=== PATIENT | female | born 1960 ===

== ENCOUNTER 2017-05-23 17:14 | Emergency (ER) | payer SELFPAY ==
[2017-05-23] MEDS ORDERED: KETOROLAC TROMETHAMINE 60 MG/2 ML VIAL ONE (17:18)
[2017-05-23] MEDS ORDERED: KETOROLAC TROMETHAMINE 60 MG/2 ML VIAL IM ONE (17:19)
[2017-05-23] MEDS ORDERED: ORPHENADRINE CITRATE 60 MG/2ML ONE (17:19)
[2017-05-23] MEDS ORDERED: ORPHENADRINE CITRATE 60 MG/2ML IM ONE (17:19)
--- NOTE | 2017-05-23 17:24 | ED Physician Documentation ---
Low Back Pain - HISTORIAN Historian: patient, child - HPI Stated Complaint: low back pain after fall down stairs Chief Complaint: Low Back Pain/ Injury History: back pain (she has had back surgery in the past ) Onset: minutes (30) Duration: continues in ED Recent Injury: Yes (fell down stairs ) Context: fall Where: other (daughters home) Other Injuries: denies: neck, head, back Severity: moderate Quality: other (sharp and cramping like twisted up per her report ) Associated Symptoms: denies: incontinence, nausea, vomiting, problems urinating , difficulty walking, light-headedness, dizziness, numbness, weakness Worsened By:: supine, upright position, movement to RT flexion Relieved By: nothing Further Comments: no - ROS CONST: no problems CVS/RESP: none EYES/ENT: none MS/SKIN/LYMPH: none Neuro/Psych: none - PAST HX Past History: other (back pain and surgery in past ) Surgeries/Procedures: other (back surgery x 2 4 years ago , hysterectomy, c section ) Allergies/Adverse Reactions: Allergies Allergy/AdvReac Type Severity Reaction Status Date / Time levofloxacin [From Levaquin] Allergy Verified 05/23/17 17:26 metoclopramide HCl Allergy Verified 05/23/17 17:26 [From Reglan] prochlorperazine Allergy Verified 05/23/17 17:26 [From Compazine] prochlorperazine edisylate Allergy Verified 05/23/17 17:26 [From Compazine] prochlorperazine maleate Allergy Verified 05/23/17 17:26 [From Compazine] Home Medications: Ambulatory Orders Medication Instructions Recorded Amoxicillin [Amoxil] 500 mg PO TID 05/23/17 - SOCIAL HX Smoking History: non-smoker Alcohol Use: none Drug Use: none - FAMILY HX Family History: none - VITAL SIGNS Vital Signs: Vital Signs Temp Pulse Resp BP Pulse Ox 75 16 155/79 99 05/23/17 17:15 05/23/17 17:15 05/23/17 17:15 05/23/17 17:15 - REVIEWED ASSESSMENTS Nursing Assessment Reviewed: Yes Vitals Reviewed: Yes ED Results Lab/Radiology - Orders Orders: ED Orders Category Date Time Status LUMBAR SPINE XR 2 OR 3 VIEWS [L SPINE 2 OR 3 VIEWS] [ Exams 05/23/17 Completed RAD] Stat RT HIP 2VIEW COMPLETE [RAD] Urgent Exams 05/23/17 Completed SACRUM & COCCYX 2 VIEW+ [RAD] Stat Exams 05/23/17 Completed Ketorolac Tromethamine [Toradol] Med 05/23/17 17:18 Discontinued 60 mg .ROUTE .STK-MED ONE Ketorolac Tromethamine [Toradol] Med 05/23/17 17:19 Discontinued 60 mg IM NOW ONE Orphenadrine Citrate [Norflex] Med 05/23/17 17:19 Discontinued 120 mg .ROUTE .STK-MED ONE Orphenadrine Citrate [Norflex] Med 05/23/17 17:19 Discontinued 60 mg IM NOW ONE traMADol HCL [Ultram] Med 05/23/17 18:23 Discontinued 50 mg PO NOW ONE Low Back Pain/Injury - Physical Exam General Appearance: no acute distress, alert EENT: eye inspection normal Neck: non-tender, painless ROM Resp/CVS: chest non-tender, breath sounds nml, heart sounds nml, no resp. distress Abdomen: non-tender Back: muscle spasm, other (pain with palpation on right lower and right hip area ) Straight Leg Raising: Negative Left, Negative Right Neuro/Psych: oriented x3, motor nml, sensation nml Skin: warm/dry, normal color Extremities: non-tender Discharge Clincal Impression: Low back pain Qualifiers: Chronicity: acute Back pain laterality: right Sciatica presence: unspecified whether sciatica present Qualified Code(s): M54.5 - Low back pain Condition: Stable Disposition: 01 HOME, SELF-CARE Decision to Admit: NO Date of Decison to Admit: 05/23/17 Decision Time: 18:29
[2017-05-23 17:39] VITALS: BP 155/79
--- NOTE | 2017-05-23 18:17 | Diagnostic Imaging Report ---
CLAIR HURTADO [facility] [address] [address] Report Submission Date: May 23, 2017 6:00:08 PM CDT Patient Study Name: ISAK ZAPATA Date: May 23, 2017 5:35:31 PM CDT Modality Type: CR Gender: F Description: SPINE : 62 Institution: [facility] Physician: CLAIR HURTADO Examination: Plain film lumbar spine History: Findings: 3 views of the lumbar spine demonstrate normal height. No anterior compression. Scattered osteophytes. Anterior fusion of L4/L5 and L5/S1. No soft tissue abnormalities. Impression: Degenerative disease and prior surgery. No vertebral body compression deformity. Electronically signed on May 23, 2017 6:00:08 PM CDT by: Nghia OLSEN
--- NOTE | 2017-05-23 18:18 | Diagnostic Imaging Report ---
CLAIR HURTADO [facility] [address] [facility].[address] [address] Report Submission Date: May 23, 2017 6:01:36 PM CDT Patient Study Name: ISAK ZAPATA Date: May 23, 2017 5:40:19 PM CDT Modality Type: CR Gender: F Description: SPINE : 62 Institution: [facility] Physician: CLAIR HURTADO Examination: Plain film sacrum/coccyx History: Fall Comparison exams: None provided Findings: 3 view of the sacrum/coccyx demonstrate normal cortical margins. Anterior disc fusion with disc replacement L4/L5 and L5/S1. Sacral deandra are symmetric. No fracture. Sacroiliac joints are without evidence for fracture or fusion. Superior and inferior pubic rami and iliac wings, as visualized, are without abnormality. No abnormal angulation of the coccyx on lateral view. Impression: Degenerative as an lower lumbar fusion. No acute osseous process. Electronically signed on May 23, 2017 6:01:36 PM CDT by: Nghia OLSEN
--- NOTE | 2017-05-23 18:19 | Diagnostic Imaging Report ---
CLAIR HURTADO [facility] [address] [facility].[address] [address] Report Submission Date: May 23, 2017 6:02:30 PM CDT Patient Study Name: ISAK ZAPATA Date: May 23, 2017 5:37:27 PM CDT Modality Type: CR Gender: F Description: PELVIS : 62 Institution: [facility] Physician: CLAIR HURTADO Examination: Plain film hip/pelvis History: Fall Comparison exams: None provided Findings: 2 views of the hip demonstrate normal cortical margins. No fracture no dislocation. No soft tissue abnormality. Impression: No acute osseous abnormality. Electronically signed on May 23, 2017 6:02:30 PM CDT by: Nghia OLSEN
[2017-05-23] MEDS ORDERED: traMADol HCL 50 MG TABLET PO ONE (18:23)
== END 2017-05-23 18:36 | disposition home or self-care (01) ==
LOC: ED 17:14
DX: M54.5 Low back pain (principal)
CPT/HCPCS: 72100; 72220; 73502; J1885; J2360; 96372; 99283